=== PATIENT | male | born 1945 | race Caucasian/White ===

== ENCOUNTER 2020-11-22 14:49 | Inpatient (IN) | payer OTHER ==
[~2020-11-22] VITALS: Ht 170.2 cm; Wt 56.5 kg
[~2020-11-22 14:49] MED LIST: ALBU8.5H5 INH; ASPI-496 PO; BUSP10TA PO; DIAZ5TAB PO; FINA5TAB4 PO; HYDR-2214 PO; IBUP200T49 PO; LEVO50TA5 PO; NICO1PAT31 TD; ONDA4TAB7 PO; OXYC1TAB7 PO; PARO10TA3 PO; SIMV40TA20 PO; TERA2CAP3 PO
--- NOTE | 2020-11-22 15:10 | NUR ---
BIB BY SUSI FROM HOME (SON CALLED) FOR WEAKNESS/CONFUSION X3 DAYS FSBS 140, HR 110-130 EMS STARTED PIV AND GAVE 100ML OF NS ON ARRIVAL APPEARS PALE, ALERT ONLY TO SELF PLACED ON FAMILY MANAGER, ECG OBTAINED POX 95% ON HOME 2L NC
--- NOTE | 2020-11-22 15:47 | NUR ---
SON (Bhargav) who is caregiver [phone]
[2020-11-22] MEDS ORDERED: SODIUM CHLORIDE FLUSH 10ML SYR IVF ONE (16:00)
--- NOTE | 2020-11-22 16:00 | NUR ---
LAB AT BEDSIDE
[2020-11-22 16:08] LABS: BASOPHILS % (AUTO) 1 % (0-1); EOSINOPHILS % (AUTO) 0 % (1-7); LYMPHOCYTES % (AUTO) 40 % (22-44); MEAN CORPUSCULAR HEMOGLOBIN 31.8 pg (27.5-34.5); MEAN CORPUSCULAR HGB CONC 33.8 g/dL (33.2-36.2); MEAN PLATELET VOLUME 8.9 fL (7.4-10.4); MONOCYTES % (AUTO) 3 % (2-9); NEUTROPHILS % (AUTO) 56 % (42-75); PLATELET COUNT 175 x10^3/uL (130-400); RED BLOOD COUNT 3.66 x10^6/uL (4.38-5.82); RED CELL DISTRIBUTION WIDTH 13.4 % (9.4-14.8)
--- NOTE | 2020-11-22 16:13 | NUR ---
TO CT SCAN
[2020-11-22 16:20] LABS: ALANINE AMINOTRANSFERASE 19 U/L (12-78); ANION GAP 3 mmol/L (5-15); CALCIUM 9.2 mg/dL (8.5-10.1); CHLORIDE 107 mmol/L (98-107); CREATININE 0.78 mg/dL (0.7-1.3)
[2020-11-22 16:24] LABS: ALKALINE PHOSPHATASE 72 U/L (45-117); BILIRUBIN,TOTAL 0.6 mg/dL (0.2-1.0); TOTAL PROTEIN 6.9 g/dL (6.4-8.2); TROPONIN I < 0.015 ng/mL (0.000-0.045)
--- NOTE | 2020-11-22 16:48 | NUR ---
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
[2020-11-22 17:07] LABS: MICROSCOPIC INDICATED
[2020-11-22] MEDS ORDERED: DICYCLOMINE 10 MG/ML, 2ML ONE ×2 (17:08→17:12)
--- NOTE | 2020-11-22 17:25 | NUR ---
TO CT SCAN
[2020-11-22] MEDS ORDERED: DICYCLOMINE 10 MG/ML, 2ML IM ONE (17:30)
[2020-11-22] MEDS ORDERED: OMNIPAQUE 350 MG/ML, 100ML BOTTLE ONE (17:43)
--- NOTE | 2020-11-22 17:57 | NUR ---
with reassessment pain improved to 0/10 resting comfortably on gurney Updated on estimated poc (awaiting abd ct results)
--- NOTE | 2020-11-22 18:59 | NUR ---
Patient found standing next to bed. Stooling himself on floor while tethered to monitoring manager cords Patient bathed and helped back to bed
[2020-11-22] MEDS ORDERED: SODIUM CHLORIDE FLUSH 10ML SYR IVF PRN (19:30)
--- NOTE | 2020-11-22 20:22 | NUR ---
PATIENT UP TO RESTROOM TO HAVE BM. LARGE AMOUNT OF SOLID STOOL RELIEVED pATIENT BACK TO ROOM FOR PROVIDED TURKEY SANDWICH ATTEMPTED TO CALL REPORT X1 AT 2019. INPATIENT RN UNAVAILABLE. SHE WILL CALL BACK WHEN AVAILABLE
[2020-11-22] MEDS ORDERED: LIDODERM 5% PATCH TD PRN (21:00)
[2020-11-22] MEDS ORDERED: MELATONIN 5 MG TABLET PO PRN (21:00)
[2020-11-22] MEDS ORDERED: DOCUSATE 100 MG CAPSULE PO PRN (21:00)
[2020-11-22 21:13] VITALS: BP 104/73
[2020-11-22 21:35] LABS: TROPONIN I < 0.015 ng/mL (0.000-0.045)
[2020-11-22] MEDS: HEPARIN 5,000 UNITS/ML, 1ML SQ SCH (21:57)
[2020-11-23 01:02] VITALS: BP 135/85
[2020-11-23 03:16] LABS: ANION GAP 7 mmol/L (5-15); BASOPHILS % (AUTO) 1 % (0-1); CHLORIDE 107 mmol/L (98-107); CREATININE 0.63 mg/dL (0.7-1.3); EOSINOPHILS % (AUTO) 0 % (1-7); LYMPHOCYTES % (AUTO) 44 % (22-44); MEAN CORPUSCULAR HGB CONC 34.2 g/dL (33.2-36.2); MEAN PLATELET VOLUME 9.3 fL (7.4-10.4); MONOCYTES % (AUTO) 3 % (2-9); NEUTROPHILS % (AUTO) 51 % (42-75); PLATELET COUNT 185 x10^3/uL (130-400); RED BLOOD COUNT 3.59 x10^6/uL (4.38-5.82); RED CELL DISTRIBUTION WIDTH 13.3 % (9.4-14.8)
[2020-11-23 03:26] LABS: TROPONIN I < 0.015 ng/mL (0.000-0.045)
[2020-11-23] MEDS: HEPARIN 5,000 UNITS/ML, 1ML SQ SCH ×3 (05:08→23:40)
[2020-11-23 07:53] VITALS: BP 144/87
[2020-11-23 13:23] LABS: MICROSCOPIC NOT IND
[2020-11-23 13:37] LABS: AMPHETAMINE SCREEN, URINE Negative (Negative); BARBITURATE SCREEN, URINE Negative (Negative); BENZODIAZEPINE SCREEN, URINE Negative (Negative); CANNABINOID SCREEN, URINE Positive (Negative); COCAINE SCREEN, URINE Negative (Negative); METHADONE SCREEN, URINE Negative (Negative); OPIATE SCREEN, URINE Negative (Negative)
[2020-11-23 15:18] VITALS: BP 121/58
[2020-11-23 15:19] VITALS: BP 114/74
[2020-11-23 15:20] VITALS: BP 121/57
[2020-11-23] MEDS ORDERED: LORazepam 2 MG/ML, 1ML IVPush ONE (16:30)
[2020-11-23 19:03] VITALS: BP 152/86
[2020-11-24 01:16] VITALS: BP 161/87
[2020-11-24 01:17] VITALS: BP 156/87
[2020-11-24 05:28] LABS: MEAN CORPUSCULAR HEMOGLOBIN 32.2 pg (27.5-34.5); MEAN CORPUSCULAR HGB CONC 34.2 g/dL (33.2-36.2); MEAN PLATELET VOLUME 9.4 fL (7.4-10.4); PLATELET COUNT 182 x10^3/uL (130-400); RED BLOOD COUNT 3.36 x10^6/uL (4.38-5.82); RED CELL DISTRIBUTION WIDTH 13.5 % (9.4-14.8)
[2020-11-24 05:36] LABS: CHLORIDE 106 mmol/L (98-107)
[2020-11-24 05:43] LABS: ALANINE AMINOTRANSFERASE 18 U/L (12-78); ALBUMIN 3.9 g/dL (3.4-5.0); ALKALINE PHOSPHATASE 68 U/L (45-117); ANION GAP 4 mmol/L (5-15); BILIRUBIN,TOTAL 0.6 mg/dL (0.2-1.0); CALCIUM 9.1 mg/dL (8.5-10.1); CREATININE 0.57 mg/dL (0.7-1.3); TOTAL PROTEIN 6.8 g/dL (6.4-8.2)
[2020-11-24] MEDS: ACETAMINOPHEN 325 MG TABLET PO PRN ×4 (05:44→20:24)
[2020-11-24 06:11] VITALS: BP 161/93
[2020-11-24] MEDS ORDERED: MIRT-14 PO (07:21)
[2020-11-24] MEDS ORDERED: GABA-827 PO (07:23)
[2020-11-24] MEDS ORDERED: OMEP-110 PO (07:26)
[2020-11-24] MEDS ORDERED: FINA5TAB4 PO (07:26)
[2020-11-24] MEDS ORDERED: ROPI0.254 PO (07:26)
[2020-11-24] MEDS ORDERED: ATOR40TA78 PO (07:26)
[2020-11-24 07:38] LABS: LYMPH#(MANUAL) 6.27 x10^3/uL (1-3.4); LYMPHS% (MANUAL) 51 % (22-44); MONOS#(MANUAL) 0.25 x10^3/uL (0.3-2.7); MONOS% (MANUAL) 2 % (2-9); SEG#(MANUAL) 5.78 x10^3/uL (1.8-6.8)
[2020-11-24 07:39] LABS: <PLATELET ESTIMATE> ADEQUATE; <PLT MORPHOLOGY> NORMAL PLT MORPH; <RBC MORPHOLOGY> NORMAL; SMUDGE CELLS 1+
[2020-11-24 07:40] LABS: SEGS% (MANUAL) 47 % (42-75)
[2020-11-24] MEDS: HEPARIN 5,000 UNITS/ML, 1ML SQ SCH ×3 (08:18→23:30)
[2020-11-24] MEDS ORDERED: ROPINIROLE 0.25MG TABLET PO SCH (09:00)
[2020-11-24] MEDS ORDERED: GABAPENTIN 300 MG CAPSULE PO SCH (09:00)
[2020-11-24] MEDS ORDERED: BUPRENORPHINE/NALOXONE 2-0.5MG SL SCH (09:00)
[2020-11-24 13:45] VITALS: BP 146/90
[2020-11-24] MEDS ORDERED: LORazepam 2 MG/ML, 1ML IVPush ONE (17:30)
[2020-11-24 18:17] VITALS: BP 145/83
[2020-11-24] MEDS ORDERED: GADOTERATE 5 MMOL/10ML SYR ONE (19:11)
[2020-11-24 19:50] VITALS: BP 154/69
[2020-11-24] MEDS: ATORVASTATIN 40 MG TABLET PO SCH (20:24)
[2020-11-24] MEDS ORDERED: ATORVASTATIN 40 MG TABLET PO SCH (21:00)
[2020-11-24] MEDS ORDERED: MIRTAZAPINE 15 MG TABLET PO SCH (21:00)
[2020-11-25 01:17] VITALS: BP 139/78
[2020-11-25 05:23] LABS: MEAN CORPUSCULAR HEMOGLOBIN 32.5 pg (27.5-34.5); MEAN CORPUSCULAR HGB CONC 34.5 g/dL (33.2-36.2); PLATELET COUNT 183 x10^3/uL (130-400); RED CELL DISTRIBUTION WIDTH 13.5 % (9.4-14.8)
[2020-11-25 05:30] LABS: ANION GAP 2 mmol/L (5-15); CALCIUM 9.5 mg/dL (8.5-10.1); CHLORIDE 106 mmol/L (98-107)
[2020-11-25 05:31] LABS: CREATININE 0.63 mg/dL (0.7-1.3)
[2020-11-25] MEDS ORDERED: OMEPRAZOLE 20 MG CAPSULE.DR PO SCH (06:00)
[2020-11-25 06:30] LABS: <RBC MORPHOLOGY> NORMAL; EOS#(MANUAL) 0.55 x10^3/uL (0.0-0.4); EOS% (MANUAL) 5 % (1-7); LYMPH#(MANUAL) 6.65 x10^3/uL (1-3.4); LYMPHS% (MANUAL) 61 % (22-44); MONOS#(MANUAL) 0.65 x10^3/uL (0.3-2.7); MONOS% (MANUAL) 6 % (2-9); SEG#(MANUAL) 3.05 x10^3/uL (1.8-6.8)
[2020-11-25 06:31] LABS: <PLATELET ESTIMATE> ADEQUATE; <PLT MORPHOLOGY> NORMAL PLT MORPH; SEGS% (MANUAL) 28 % (42-75); SMUDGE CELLS 1+
[2020-11-25] MEDS: PAROXETINE 10 MG TABLET PO SCH (07:45)
[2020-11-25] MEDS: HEPARIN 5,000 UNITS/ML, 1ML SQ SCH ×2 (07:45→16:49)
[2020-11-25 08:17] VITALS: BP 134/82
[2020-11-25 11:49] VITALS: BP 152/86
[2020-11-25] MEDS: ACETAMINOPHEN 325 MG TABLET PO PRN ×2 (12:42→20:42)
[2020-11-25 15:12] VITALS: BP 154/82
[2020-11-25 18:39] VITALS: BP 124/81
[2020-11-25] MEDS: ATORVASTATIN 40 MG TABLET PO SCH (20:42)
[2020-11-26] MEDS: HEPARIN 5,000 UNITS/ML, 1ML SQ SCH ×3 (00:32→15:56)
[2020-11-26 01:39] VITALS: BP 144/72
[2020-11-26 05:49] LABS: CHLORIDE 106 mmol/L (98-107)
[2020-11-26 05:54] LABS: ANION GAP 2 mmol/L (5-15); CALCIUM 8.8 mg/dL (8.5-10.1); CREATININE 0.55 mg/dL (0.7-1.3)
[2020-11-26 05:55] LABS: BASOPHILS % (AUTO) 0 % (0-1); EOSINOPHILS % (AUTO) 4 % (1-7); LYMPHOCYTES % (AUTO) 63 % (22-44); MEAN CORPUSCULAR HGB CONC 34.2 g/dL (33.2-36.2); MEAN PLATELET VOLUME 9.2 fL (7.4-10.4); MONOCYTES % (AUTO) 4 % (2-9); NEUTROPHILS % (AUTO) 29 % (42-75); PLATELET COUNT 183 x10^3/uL (130-400); RED BLOOD COUNT 3.49 x10^6/uL (4.38-5.82); RED CELL DISTRIBUTION WIDTH 13.5 % (9.4-14.8)
[2020-11-26 06:43] VITALS: BP 132/86
[2020-11-26] MEDS: PAROXETINE 10 MG TABLET PO SCH (09:10)
[2020-11-26 13:03] VITALS: BP 144/79
[2020-11-26] MEDS ORDERED: POTASSIUM CHLORIDE 20 MEQ TAB.ER.PRT PO ONE (16:00)
== END 2020-11-26 17:31 | disposition home health service (06) | DRG 93 ==
LOC: ED 17:01 → EDIP 19:25 → 4WST 21:05
PROVIDERS: ADMIT Family Medicine; ATTEND Family Medicine
DX: G92 Toxic encephalopathy (principal); K56.41 Fecal impaction; D72.829 Elevated white blood cell count, unspecified; E03.9 Hypothyroidism, unspecified; E78.5 Hyperlipidemia, unspecified; G20 Parkinson's disease; I65.29 Occlusion and stenosis of unspecified carotid artery; I73.9 Peripheral vascular disease, unspecified; J44.9 Chronic obstructive pulmonary disease, unspecified; N40.0 Benign prostatic hyperplasia without lower urinary tract symptoms; W18.11XA Fall from or off toilet without subsequent striking against object, initial encounter; Z87.891 Personal history of nicotine dependence; Z79.899 Other long term (current) drug therapy; Z79.891 Long term (current) use of opiate analgesic; Z79.01 Long term (current) use of anticoagulants; Y93.89 Activity, other specified; Y92.89 Other specified places as the place of occurrence of the external cause; Y99.8 Other external cause status
CPT/HCPCS: 36415; 70450; 70553; 71045; 72125; 74177; 80048; 80053; 80307; 81001; 81003; 82140; 82533; 82607; 83036; 83735; 84100; 84443; 84484; 85025; 87086; 93005; 93306; 93880; 96372; 99285; G0378; J1644; Q9967; A9575; J0500; J2060